=== PATIENT | female | born 1985 | race Two or more races ===

== ENCOUNTER 2022-05-19 05:30 | Inpatient (IN) | payer OTHER ==
[2022-05-19] MEDS ORDERED: ELECTROLYTE-148 SOLN 500 ML IV ONE ×2 (06:00→08:06)
[2022-05-19] MEDS ORDERED: CITRIC ACID/SODIUM CITRATE 30 ML UNIT-DOSE CUP PO ONE ×2 (06:00→08:06)
[2022-05-19 06:19] VITALS: BMI 34.9
[2022-05-19] MEDS ORDERED: ELECTROLYTE-148 SOLN 1,000 ML IV SCH ×2 (06:30→08:35)
[2022-05-19] MEDS ORDERED: morphine SULFATE/PF 1 MG/2 ML (2cc Syringe - QUVA) ONE (08:09)
[2022-05-19] MEDS ORDERED: PROPOFOL 20 ML ONE (08:29)
[2022-05-19] MEDS ORDERED: SUCCINYLCHOLINE CHLORIDE 200 MG/10 ML SYRINGE ONE (08:29)
[2022-05-19] MEDS ORDERED: MIDAZOLAM HCL 2 MG/2 ML SINGLE DOSE VIAL ONE (08:46)
[2022-05-19] MEDS ORDERED: ONDANSETRON 4 MG/2 ML VIAL ONE ×2 (08:58→10:45)
[2022-05-19] MEDS ORDERED: OXYTOCIN 10 UNITS/ML VIAL ONE (08:58)
[2022-05-19] MEDS: OXYTOCIN 20 UNITS in 0.9% NS 20 UNIT/1,000 ML INFUS.BAG IV SCH ×2 (09:45→18:27)
[2022-05-19] MEDS ORDERED: METHYLERGONOVINE MALEATE 0.2 MG/1 ML AMP IM PRN (10:12)
[2022-05-19] MEDS ORDERED: IBUPROFEN 800 MG/8 ML IJ IVPB PRN (10:12)
[2022-05-19] MEDS ORDERED: OXYTOCIN 20 UNITS in 0.9% NS 20 UNIT/1,000 ML INFUS.BAG IV ONE (10:43)
[2022-05-19] MEDS ORDERED: ONDANSETRON 4 MG/2 ML VIAL IVPB ONE (11:00)
[2022-05-19 12:19] LABS: HIV INTERPRETATION NEGATIVE (NEGATIVE)
[2022-05-19] MEDS: SIMETHICONE 80 MG TAB.CHEW (FP) PO PRN (20:42)
[2022-05-19] MEDS ORDERED: oxyCODONE HCL 5 MG TABLET PO PRN (22:12)
[2022-05-20] MEDS: SIMETHICONE 80 MG TAB.CHEW (FP) PO PRN ×3 (00:09→20:19)
[2022-05-20] MEDS: ACETAMINOPHEN 325 MG TABLET (FP) PO PRN ×2 (00:09→20:19)
[2022-05-20] MEDS: oxyCODONE HCL 5 MG TABLET PO PRN ×3 (04:46→16:43)
[2022-05-20 07:12] LABS: BASO % 0.9 % (0-2.0); EOS % 0.3 % (0-4.5); HEMATOCRIT 25.7 % (32.4-45.2); HEMOGLOBIN 8.6 GM/dL (10.7-15.3); LYMPH % 10.6 % (8-40); MCH 30.2 pg (25.7-33.7); MCHC 33.3 g/dl (32.0-36.0); MEAN CELL VOLUME 90.8 fl (80-96); MEAN PLT VOLUME 9.9 fl (7.5-11.1); MONO % 9.1 % (3.8-10.2); NEUT % 79.1 % (42.8-82.8); PLATELET COUNT 154 10^3/uL (134-434); RBC 2.83 M/mm3 (3.60-5.2); RDW 14.1 % (11.6-15.6); WHITE BLOOD COUNT 9.2 K/mm3 (4.0-10.0)
[2022-05-20] MEDS: IBUPROFEN 600 MG TABLET (FP) PO PRN (07:54)
[2022-05-20] MEDS ORDERED: BISACODYL 10 MG SUPP.RECT RC PRN (10:12)
[2022-05-20] MEDS: PRENATAL VITAMINS W/ FOLIC ACID TABLET (FP) PO SCH (10:24)
[2022-05-20] MEDS: SENNOSIDES/DOCUSATE COMBO (SENNA PLUS) TABLET (UD) PO PRN (20:19)
[2022-05-21] MEDS: SIMETHICONE 80 MG TAB.CHEW (FP) PO PRN ×2 (07:01→21:39)
[2022-05-21] MEDS: oxyCODONE HCL 5 MG TABLET PO PRN (07:02)
[2022-05-21] MEDS: PRENATAL VITAMINS W/ FOLIC ACID TABLET (FP) PO SCH (09:27)
[2022-05-21] MEDS: IBUPROFEN 600 MG TABLET (FP) PO PRN (11:51)
[2022-05-21] MEDS: SENNOSIDES/DOCUSATE COMBO (SENNA PLUS) TABLET (UD) PO PRN (21:39)
[2022-05-21] MEDS: ACETAMINOPHEN 325 MG TABLET (FP) PO PRN (21:39)
[2022-05-22] MEDS: ACETAMINOPHEN 325 MG TABLET (FP) PO PRN ×2 (05:57→19:16)
[2022-05-22] MEDS: SIMETHICONE 80 MG TAB.CHEW (FP) PO PRN ×2 (05:57→19:16)
[2022-05-22] MEDS: IBUPROFEN 600 MG TABLET (FP) PO PRN ×2 (07:59→23:30)
[2022-05-22] MEDS: PRENATAL VITAMINS W/ FOLIC ACID TABLET (FP) PO SCH (09:15)
[2022-05-22] MEDS ORDERED: PENICILLIN G BENZATHINE 2,400,000 UNIT/4 ML PFS IM ONE (19:00)
[2022-05-23] MEDS: IBUPROFEN 600 MG TABLET (FP) PO PRN (06:26)
[2022-05-23] MEDS: SIMETHICONE 80 MG TAB.CHEW (FP) PO PRN (06:26)
[2022-05-23] MEDS: PRENATAL VITAMINS W/ FOLIC ACID TABLET (FP) PO SCH (09:48)
[2022-05-23 10:20] VITALS: BP 140/89; PULSE 82; TEMP 98.5
== END 2022-05-23 13:30 | disposition home or self-care (01) | DRG 787 ==
LOC: JLDR 05:30 → J3W 11:10
PROVIDERS: ADMIT Obstetrics & Gynecology; ATTEND Obstetrics & Gynecology
PROC: 10D00Z1 Extraction of Products of Conception, Low, Open Approach (ICD-10-PCS; principal; 2022-05-19)
DX: O34.211 Maternal care for low transverse scar from previous cesarean delivery (principal); O98.12 Syphilis complicating childbirth; Z3A.40 40 weeks gestation of pregnancy; Z37.0 Single live birth; A53.9 Syphilis, unspecified
CPT/HCPCS: 36415; 85025; 86780; 87389; 88307-TC; C9803-CS; U0003; U0005